=== PATIENT | male | born 1940 | race Caucasian/White ===

== ENCOUNTER → 2017-11-02 | Outpatient (CLI) | payer MEDICARE, BC | LOC: COL.LAB 09:51 | DX: Z01.812 Encounter for preprocedural laboratory examination (principal) ==

== ENCOUNTER → 2018-08-02 | Outpatient (CLI) | payer MEDICARE, BC | LOC: COL.LAB 09:52 | DX: Z96.642 Presence of left artificial hip joint (principal) ==